=== PATIENT | female | born 1975 | race Caucasian/White ===

== ENCOUNTER 2016-09-27 02:36 | Emergency (ER) | payer SELFPAY ==
[~2016-09-27] VITALS: Ht 165.1 cm; Wt 61.7 kg
[2016-09-27 03:54] VITALS: BP 115/80
== END 2016-09-27 03:54 | disposition home or self-care (01) ==
LOC: ER 02:41
DX: M79.601 Pain in right arm (principal); G89.29 Other chronic pain
CPT/HCPCS: A4606; Z7502; Z7610